=== PATIENT | female | born 1970 | race Caucasian/White ===

== ENCOUNTER 2020-07-29 16:32 | Emergency (ER) | payer OTHER, SELFPAY ==
[2020-07-29 16:57] VITALS: BP 107/77; PULSE 80; RESP 16; TEMP 37.2; O2SAT 100; BMI 20.3
--- NOTE | 2020-07-29 16:57 | XR_ITS ---
EXAMINATION: XR ANKLE, RIGHT XR FOOT, RIGHT CLINICAL INFORMATION: Fall. COMPARISON: None TECHNIQUE: AP, mortise, and lateral views of the right ankle. AP, oblique, and lateral views of the right foot. FINDINGS: Right Ankle: No displaced fracture. No dislocation. The ankle mortise is maintained. No joint space narrowing or marginal osteophytes. No osseous erosion. Mild circumferential soft tissue swelling. Right Foot: No acute fracture or dislocation. No joint space narrowing or marginal osteophytes. No osseous erosion. No abnormal soft tissue calcification. XR/XR ankle RT 2V IMPRESSION: Right Ankle: Mild circumferential soft tissue swelling without acute fracture or dislocation. Right Foot: No acute fracture or dislocation.
--- NOTE | 2020-07-29 16:57 | XR_ITS ---
EXAMINATION: XR ANKLE, RIGHT XR FOOT, RIGHT CLINICAL INFORMATION: Fall. COMPARISON: None TECHNIQUE: AP, mortise, and lateral views of the right ankle. AP, oblique, and lateral views of the right foot. FINDINGS: Right Ankle: No displaced fracture. No dislocation. The ankle mortise is maintained. No joint space narrowing or marginal osteophytes. No osseous erosion. Mild circumferential soft tissue swelling. Right Foot: No acute fracture or dislocation. No joint space narrowing or marginal osteophytes. No osseous erosion. No abnormal soft tissue calcification. XR/XR foot RT min 3V IMPRESSION: Right Ankle: Mild circumferential soft tissue swelling without acute fracture or dislocation. Right Foot: No acute fracture or dislocation.
--- NOTE | 2020-07-29 17:23 | ED_ITS ---
HPI - Extremity Injury (Lower) General Chief Complaint: Extremity Injury, Lower Stated Complaint: Ankle Inj Time Seen by Provider: 07/29/20 16:57 Source: patient Mode of arrival: ambulatory Limitations: no limitations History of Present Illness HPI Narrative: patient presents to ED for right ankle pain Today after slipping on wet grass and twisting her right ankle. Patient denies falling to the ground or hitting head. Patient denies any loss of consciousness. Related Data Previous Rx's Medication Instructions Recorded cyclobenzaprine 10 mg PO TID PRN #15 tab 07/29/20 naproxen 500 mg PO BID PRN #20 tab 07/29/20 Allergies Allergy/AdvReac Type Severity Reaction Status Date / Time Penicillins [PENICILLINS] Allergy Unknown HIVES Verified 07/29/20 17:04 Review of Systems Review of Systems: Yes all other systems are reviewed and are negative Constitutional: Constitutional: Reports as per HPI and Reports no additional constitutional complaints Eyes: Eyes: Reports as per HPI and Reports no additional eye complaints ENT: Reports system reviewed and no additional complaints, except as documented and Reports as per HPI Cardiovascular: Cardiovascular: Reports as per HPI and Reports no additional cardiovascular complaints Respiratory: Respiratory: Reports as per HPI and Reports no additional respiratory complaints Gastrointestinal: Gastrointestinal: Reports as per HPI and Reports no additional gastrointestinal complaints Genitourinary: Genitourinary: Reports no additional female genitourinary complaints and Reports as per HPI Musculoskeletal: Musculoskeletal: Reports no additional musculoskeletal complaints and Reports as per HPI Comments: Right ankle pain Neurologic: Reports system reviewed and no additional complaints, except as documented and Reports as per HPI Psychiatric: Psychiatric: Reports no additional psychiatric complaints and Reports as per HPI [facility] Past Medical History Medical History (Updated 07/29/20 @ 17:38 by KYLE Plasencia) No known health problems Social History Social History Advance Directives: No Advance Directives Information Provided: Yes Physical Exam Vital Signs: Vital Signs: Vital Signs Temp Pulse Resp BP Pulse Ox 07/29/20 16:57 98.9 F 80 16 107/77 100 Body Mass Index 20.3 Const: General: cooperative, healthy appearing, comfortable, no acute distress, well developed, alert and awake Orientation/consciousness: patient oriented x3 HENMT: Head: Yes normal to inspection, Yes No palpable skull fracture present, Yes atraumatic, No abrasion, No Acrocyanosis present, No Snow's sign, No contusion, No hematoma, No laceration, No palpable skull fracture, No raccoon eyes, No scalp tenderness, No Temporal artery tenderness present and No periorbital ecchymosis Eyes: General: appearance normal, both eyes and all related structures Neck: Neck: Yes normal visual inspection, Yes full ROM, Yes no lymphadenopathy, Yes no meningeal signs, Yes trachea midline and No tender Chest: Chest palpation & inspection: normal inspection of the chest, normal palpation of entire chest wall and no localized rib tenderness Resp: Effort & Inspection: normal respiratory effort, able to speak in complet e sentences, normal respiratory pattern, no audible wheezes, no cough, no grunting, not labored, no nasal flaring, no paradoxical thoraco-abdom movements and no segmental paradox chest wall movement Auscultation: no crackles, no rales, no rhonchi and no wheezes Cardio: Jugular venous distension: no JVD Heart sounds: S1 normal heart sound present and S2 normal heart sound present GI: Inspection: Yes normal to inspection and No abdominal wall ecchymosis Palpation (GI): Soft to palpation, not firm, nontender, no guarding and not rigid : General: No CVA tenderness and Yes no CVA tenderness Back/Spine/Pelvis: Back: no CVA tenderness, No CVA tenderness and No back tenderness Skin: General skin exam: no rashes or lesions noted Trauma: no lacerations or abrasions Neuro: General: patient oriented x3, gait normal, no meningeal signs and CN's II-XI intact bilaterally Cranial nerves: Yes CN's II-XII intact bilaterally Extrem: Other: positive for right ankle lateral malleus and anterior tenderness of palpation. Vascular exam is intact. Oro test negative. Left lower extremity normal. Psych: Appearance: grossly normal, well kempt and not disheveled Course Course Course Narrative: Patient will have imaging of right lower extremity to rule out fracture of ankle or foot. Reevaluation(s) Reevaluation #1: Right lower extremity negative for any fractures or foot or ankle. Patient will be placed in air cast. Time: 17:34 MDM - Extremity Injury (Lower) MDM Narrative Medical decision making narrative: ankle sprain Discharge Plan Discharge Clinical Impression: Ankle sprain and strain Patient Disposition: Home, Self-Care Instructions: Ankle Sprain (ED) Additional Instructions: return to the ED for increased swelling of lower extremities, calf pain, chest pain, shortness of breath, skin tightness, bluish discoloration of lower extremity, or any other concerning symptoms. Prescriptions: New naproxen 500 mg tablet 500 mg PO BID PRN (Reason: pain) Qty: 20 RF: 0 cyclobenzaprine 10 mg tablet 10 mg PO TID PRN (Reason: muscle spasm) Qty: 15 RF: 0 Referrals: Ruth Mistry FNP [Primary Care Provider] - 2 days (Right ankle sprain. Recommend MRI if pain does not improve.) Stand Alone Forms: Work/School Release Print Language: Macedonian
[2020-07-29] MEDS: oxyCODONE HCl Immed Release 5 MG TABLET PO (17:27)
== END 2020-07-29 18:10 | disposition home or self-care (01) ==
PROVIDERS: Emergency Provider Internal Medicine; PCP Nurse Practitioner Family
DX: S93.401A Sprain of unspecified ligament of right ankle, initial encounter (principal); M25.571 Pain in right ankle and joints of right foot; X50.1XXA Overexertion from prolonged static or awkward postures, initial encounter; Y93.01 Activity, walking, marching and hiking; Y92.007 Garden or yard of unspecified non-institutional (private) residence as the place of occurrence of the external cause; Z79.899 Other long term (current) drug therapy
CPT/HCPCS: 73600; 73630; 99283

== ENCOUNTER → 2020-08-21 14:08 | Outpatient (BNVA) | payer OTHER, SELFPAY | PROVIDERS: PCP Nurse Practitioner Family; Visit Provider Physician Assistant | DX: Z76.89 Persons encountering health services in other specified circumstances (principal) ==

== ENCOUNTER 2020-10-05 07:00 | Outpatient (RCR) | payer OTHER, SELFPAY ==
--- NOTE | 2020-08-31 10:36 | MHC.PT.EP ---
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 CURRENTLY, SHE HAS LIMITED ANKLE ROM, (+) EDEMA RIGHT DISTAL LE, (+) PAIN RIGHT LATERAL INF MALL > ACHILLES'> MEDIAL INF MALL, AND DECR FUNCTIONAL STRENGTH IN RIGHT LE. FUNCTIONAL MOB SYDNEY HAS BEEN IMPACTED THROUGHOUT SHE IS CURRENTLY IN A WALKING BOOT AND HER RIGHT ANKLE PAIN RESTRICTS HER ACTIVITY. SHE IS A VERY GOOD PT CANDIDATE TO ADDRESS THE ABOVE, ASSIST IN WEANING RIGHT WALKING BOOT, DEV HEP AND ULTIMATE GOAL OF RTW. Frequency and Duration: The patient will be seen Short Term Goals: DECR RIGHT ANKLE PAIN AND EDEMA IMPROVE AROM RIGHT ANKLE IN 2 WKS DEV HEP AND GRAD WEAN RIGHT WALKING BOOT W IMPROVED GAIT MECH LEVEL GROUND AND STAIRS IN 3 WKS Group Home Goals: Pt INDEP W HEP AND SELF-SX MGMT TECHN IN 5 WKS Pt DEMON WFL STRENGTH RIGHT LE, INDEP ADLs AND RTW (MODIFIED) EVIDENT IN IMPROVED LEFT SCORE BY 20 POINTS IN 5 WKS Treatment Plan: Modalities to reduce pain, spasms and effusion. Manual therapy to restore motion and function. Therapeutic exercise to improve strength and flexibility. Neuromuscular re-education for posture and balance. Therapeutic activities to return to functional activities of daily living. Please sign and return to therapist. Thank you for your referral.
--- NOTE | 2020-11-13 09:28 | MHC.PT.DC ---
[facility] [place] Office [place] Office [place] Office [address] Priscila Mckeon [address] [phone] F: [phone] F: [phone] F: [phone] F: [phone] Physical Therapy Discharge Report Diagnosis: RIGHT ANKLE SPRAIN Date of Surgery: NA Date of Evaluation: 08/31/20 Date of Discharge: 11/13/20 Treatments to Date: 8 Cancellations to Date: 0 No Shows to Date: 0 Discharge Status: Improved Function Independent with HEP Patient Elected to Stop Discharge Summary: Pt HAS PROGRESSED NICELY IN PT FOR HER RIGHT ANKLE SPRAIN- SHE IS MOTIVATED W HEP AND 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 WE DID NOT PHYSICALLY ADDRESS JOGGING/ RUNNING AT TIME Pt HAD DECIDED TO D/C HERSELF, BUT SHE HAD PERF SOME AGILITY EXER W/O EXACERBATION OF SXS. SHE MET MAJORITY OF HER GOALS (ROM, RED EDEMA, SYMMETRICAL PELVIS, INCR STRENGTH) Electronically signed by: Thania May,PT Please sign and return to therapist. Thank you for your referral.
== END 2020-11-13 09:32 | disposition other institution (70) ==
LOC: HO.PT 07:00
PROVIDERS: Visit Provider Physician Assistant
DX: S93.401D Sprain of unspecified ligament of right ankle, subsequent encounter (principal)
CPT/HCPCS: 97014; 97110; 97112; 97140; 97162